=== PATIENT | female | born 1970 | race Caucasian/White ===

== ENCOUNTER 2020-08-09 10:31 | Emergency (ER) | payer OTHER ==
[2020-08-09 10:46] VITALS: RESP 18
--- NOTE | 2020-08-09 11:08 | ED ---
General Adult HPI - General Chief complaint: ENT Stated complaint: foreign object in throat Time Seen by Provider: 08/09/20 10:45 Source: patient, RN notes reviewed, old records reviewed Mode of arrival: ambulatory Limitations: no limitations - History of Present Illness Initial comments: This is a 49-year-old female who presents emergency Department stating that last night she thinks she may have accidentally swallowed metal tab to a pop can. Patient states she has been able to drinking eat since but there is a sensation that the metal piece is still in her throat. Patient denies any difficulty breathing or shortness of breath. Patient denies any chest pain or abdominal pain. - Related Data Allergies Allergy/AdvReac Type Severity Reaction Status Date / Time sulfamethoxazole Allergy Nausea & Verified 08/09/20 10:46 [From Bactrim] Vomiting trimethoprim [From Bactrim] Allergy Nausea & Verified 08/09/20 10:46 Vomiting Review of Systems ROS Statement: Those systems with pertinent positive or pertinent negative responses have been documented in the HPI. ROS Other: All systems not noted in ROS Statement are negative. Past Medical History Past Medical History: No Reported History History of Any Multi-Drug Resistant Organisms: None Reported Past Surgical History: Hysterectomy Past Psychological History: No Psychological Hx Reported Smoking Status: Never smoker Past Alcohol Use History: Occasional Past Drug Use History: None Reported General Exam - General Exam Comments Initial Comments: GENERAL: Patient is well-developed and well-nourished. Patient is nontoxic and well- hydrated and is in mild distress. ENT: Neck is soft and supple. No significant lymphadenopathy is noted. Oropharynx is clear. Moist mucous membranes. Neck has full range of motion without eliciting any pain. EYES: The sclera were anicteric and conjunctiva were pink and moist. Extraocular movements were intact and pupils were equal round and reactive to light. Eyel ids were unremarkable. PULMONARY: Unlabored respirations. Good breath sounds bilaterally. No audible rales rhonchi or wheezing was noted. CARDIOVASCULAR: There is a regular rate and rhythm without any murmurs gallops or rubs. SKIN: Skin is clear with no lesions or rashes and otherwise unremarkable. NEUROLOGIC: Patient is alert and oriented x3. Cranial nerves II through XII are grossly intact. Motor and sensory are also intact. Normal speech, volume and content. Symmetrical smile. Cerebellar exam grossly intact. MUSCULOSKELETAL: Normal extremities with adequate strength and full range of motion. LYMPHATICS: No significant lymphadenopathy is noted PSYCHIATRIC: Mildly anxious Limitations: no limitations Course Vital Signs 08/09/20 10:41 Temperature 97.4 F L Pulse Rate 80 Respiratory 18 Rate Blood Pressure 145/80 O2 Sat by Pulse 100 Oximetry Medical Decision Making - Medical Decision Making Chest x-ray and soft tissue neck show no metallic foreign body. Disposition Clinical Impression: Globus hystericus Disposition: HOME SELF-CARE Condition: Good Instructions (If sedation given, give patient instructions): Esophageal Foreign Body (ED) Is patient prescribed a controlled substance at d/c from ED?: No Referrals: Javier Wolf MD [Primary Care Provider] - 1-2 days Time of Disposition: 12:25
--- NOTE | 2020-08-09 12:03 | XR ---
EXAMINATION TYPE: XR soft tissue neck DATE OF EXAM: 08/09/2020 COMPARISON: None HISTORY: Foreign body, potential swallowing metal object TECHNIQUE: 2 view soft tissue neck. FINDINGS: Small calcific area appears to be within the region of the posterior tongue. The vallecula appears clear. Consider direct visualization of the posterior tongue elevation the patient is stable. Prevertebral space is normal. Degenerative disc changes are within the cervical spine. No suspicious radiopaque foreign body within the [id number] is otherwise evident. IMPRESSION: 1. No suspicious radiopaque foreign body to account for metallic foreign body. 2. Small calcification may be within the posterior tongue region. Consider follow-up with direct visu alization of the posterior tongue. Soft tissue neck may be useful for additional evaluation.
--- NOTE | 2020-08-09 12:04 | XR ---
EXAMINATION TYPE: XR chest 1V DATE OF EXAM: 08/09/2020 COMPARISON: None INDICATION: Foreign body TECHNIQUE: Single frontal view of the chest is obtained. FINDINGS: The heart size is normal. The pulmonary vasculature is normal. The lungs are clear. Tracheobronchial tree appears normal. No radiopaque foreign bodies evident within the [id number]. Upper abdomen appears clear. IMPRESSION: 1. No acute pulmonary process. 2. No radiopaque foreign body evident.
[2020-08-09 12:43] VITALS: BP 126/75; PULSE 71; TEMP 98.1
== END 2020-08-09 12:43 | disposition home or self-care (01) ==
LOC: EC 10:31
DX: F45.8 Other somatoform disorders (principal); Z88.2 Allergy status to sulfonamides; Z88.1 Allergy status to other antibiotic agents
CPT/HCPCS: 70360; 71045; 99284